=== PATIENT | female | born 1985 | race American Indian/Alaskan Native ===

== ENCOUNTER 2021-12-06 20:35 | Emergency (ER) | payer SELFPAY ==
[2021-12-07 02:41] LABS: Hematocrit 29.7 % (30.3-42.9); Hemoglobin 8.7 gm/dl (10.1-14.3); Mean Corpuscular HGB Conc 29 % (30-34); Mean Corpuscular Volume 71 fl (79-97); Platelet Count 363 K/mm3 (140-440); Red Blood Count 4.19 M/mm3 (3.65-5.03); Red Cell Distribution Width 17.7 % (13.2-15.2)
[2021-12-07 02:47] LABS: Alanine Aminotransferase 9 units/L (7-56); Blood Urea Nitrogen 5 mg/dL (7-17); Calcium 9.1 mg/dL (8.4-10.2); Hemolysis Index 22
[2021-12-07 03:02] LABS: BUN/Creatinine Ratio 10
[2021-12-07 03:56] LABS: Basophils % (Manual) 0 % (0.0-1.8); Total Cells Counted 100
[2021-12-07 03:57] LABS: Hypochromasia 1+; Platelet Estimate Consistent w Auto
--- NOTE | 2021-12-07 04:46 | Cat Scan Report ---
CT facial bones w con INDICATION / CLINICAL INFORMATION: facial swelling. TECHNIQUE: Axial CT imaging of maxillofacial region was obtained with 100 mL Omni 350 IV contrast. Coronal and s agittal reformatted imaging obtained and reviewed. All CT scans at this location are performed using CT dose reduction for ALARA by means of automated exposure control. COMPARISON: None available. FINDINGS: In the soft tissues lateral to the right orbit, there is large area of induration and inflammatory ch wild. Within this area of inflammatory change there is a more focal subtle masslike area that may be the very beginning of abscess development. This area measures approximately 3-3.5 cm. Inflammatory ch wild extends to the lateral aspect of the right orbit. There is mild periorbital soft tissue edema. T he right orbit is otherwise unremarkable. Visualized paranasal sinuses and mastoid air cells are all well aerated and clear. No evidence of sin usitis. No visible dental abscess. No osseous abnormality identified. IMPRESSION: 1. Large area of inflammatory change and induration in the soft tissues lateral to the right orbit. W ithin the area of inflammatory change, there may be the beginning of abscess formation, measuring jayde roximately 3-3.5 cm. 2. Inflammatory change extends to the periorbital soft tissues on the right. The right orbit is other post unremarkable. 3. No evidence of sinusitis. Signer Name: Maddison Osborn MD Signed: 12/07/2021 4:41 AM Workstation Name: [id number]
[2021-12-07] MEDS ORDERED: dexAMETHasone 4 MG/ML VIAL IV ONE (06:26)
[2021-12-07] MEDS ORDERED: MORPHINE 4 MG/1 ML INJ IV ONE ×2 (06:26→08:07)
[2021-12-07] MEDS ORDERED: SODIUM CHLORIDE 0.9% 1000 ML 1,000 ML IV ONE ×2 (06:27→09:27)
--- NOTE | 2021-12-07 06:35 | Emergency Department Report ---
ED General Adult HPI - General Chief complaint: Eye Problems Stated complaint: INSECT BITE/RT SIDE FACIAL SWELLING PUI?: No Time Seen by Provider: 12/07/21 06:14 Source: patient Mode of arrival: Ambulatory Limitations: No Limitations - History of Present Illness Initial comments: Please note that this patient had been triaged and registered for 9 hours and 38 minutes prior to this provider shift time onset and arrival. She had diagnostic imaging and labs ordered and resulted in the electronic health care record which I reviewed at the time of my independent evaluation of her. 36-year-old female presents with complaints of 5 days of progressively worsening right-sided facial pain swelling as well as right periorbital swelling and throat pain. 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 She states she did not see an insect bite her but "I think something did by me." She recalls feeling pain and then developing a small pustule which she attempted to pop with her fingers. Since then she has developed spreading pain and redness and some drainage from the site. She c/o pain with movement in her Right eye as well as light sensitivity in her R eye. She states she is not having any vision changes but feels as though her throat is tight and she has pain with swallowing. No nausea vomiting fevers or chills. No vision changes. She states she has no difficulty with swallowing her oral secretions. Pain currently 8 out of 10. Patient states she did not seek medical attention prior to her return to [place] which was this morning. Last menstrual cycle was November 17, 2021. Severity scale (0 -10): 5 - Related Data Allergies Allergy/AdvReac Type Severity Reaction Status Date / Time No Known Allergies Allergy Unverified 12/06/21 21:20 ED Review of Systems ROS: Stated complaint: INSECT BITE/RT SIDE FACIAL SWELLING Other details as noted in HPI Comment: All other systems reviewed and negative ED Past Medical Hx - Past Medical History Previous Medical History?: No - Surgical History Past Surgical History?: Yes Additional Surgical History: gastric bypass - Social History Smoking Status: Never Smoker Substance Use Type: None ED Physical Exam - General Limitations: No Limitations General appearance: alert, other (Talking on personal cellular telephone with family member, no drooling no stridor no respiratory distress, breathing unlabo red) - Head Head exam: Present: atraumatic, other (Patient has spontaneously draining questionable abscess to right temporal region, moderate erythema and tenderness palpation findings consistent with cellulitis and possible underlying abscess) - Eye Eye exam: Present: normal appearance, PERRL, EOMI, periorbital swelling, periorbital tenderness (Right lateral periorbital swelling and tenderness palpation,) Pupils: Present: normal accommodation - ENT ENT exam: Present: normal exam, normal orophraynx, mucous membranes moist, normal external ear exam - Neck Neck exam: Present: normal inspection, full ROM, lymphadenopathy - Respiratory Respiratory exam: Present: normal lung sounds bilaterally. Absent: respiratory distress, wheezes, rales, rhonchi, stridor, chest wall tenderness, decreased breath sounds, other - Cardiovascular Cardiovascular Exam: Present: regular rate, normal rhythm, normal heart sounds - Neurological Exam Neurological exam: Present: alert, oriented X3, CN II-XII intact, normal gait, motor sensory deficit, reflexes normal. Absent: altered, abnormal gait, other - Psychiatric Psychiatric exam: Present: normal affect. Absent: normal mood, depressed, agitated, anxious, flat affect, manic, homicidal ideation, suicidal ideation ED Course Vital Signs 12/06/21 12/07/21 12/07/21 21:15 07:45 08:00 Temperature 97.9 F Pulse Rate 91 H Respiratory 17 Rate Blood Pressure 133/83 Blood Pressure 139/102 [Left] O2 Sat by Pulse 98 100 100 Oximetry 12/07/21 12/07/21 08:16 08:27 Temperature 98.6 F Pulse Rate 90 Respiratory Rate Blood Pressure 133/83 Blood Pressure [Left] O2 Sat by Pulse 99 Oximetry - Reevaluation(s) Reevaluation #1: 12/07/21 09:08 pt reassessed; states pain has improved; continues to c/o pain with R EOM movement; pt informed that she has been accepted for transfer to [facility] given her inability to be transferred to the [facility] surrounding the area. Patient verbalized agreement. We are awaiting EMS transportation. - Consultations Consultation #1: 12/07/21 08:19 Per community outreach specialist, [facility] is on diversion except for saleh, trauma, and acute strokes. intake coordinator will not permit me to speak with ophthalmology. 08:17am: Return call received from [facility]. I spoke to the clinical research coordinator. She states there are no med/surg beds available but she will have the balance staff inspector return my call. 08:50am: Return call received from [facility]. They are on diversion. 08:51am: per community outreach specialistDorothy: [facility] has confirmed they do not have ophthalmology services available. 08:56am: Per community outreach specialistDorothy: [facility] is on diversion. 08:59am: Return call received from [facility]. I spoke with ER attending physician, Dr. Jacome. She confirms that ophthalmology is a consulting service on staff at that facility. She has verbalized agreement to accept the patient for transfer to the emergency department. Consultation #2: 12/07/21 12/07/21 09:11 ED Medical Decision Making - Lab Data Result diagrams: 12/07/21 02:09 12/07/21 02:09 - Medical Decision Making 36-year-old female presents with 4 to 5 days of progressively worsening right facial pain and swelling as well as photophobia and pain with right extraocular muscle movement. She is found on physical exam and diagnostic imaging to have right periorbital cellulitis, and right facial abscess lateral to her right orbit. This facility does not have ophthalmology, OMFS, or ENT available for consultation. Therefore the patient necessitated emergent transfer for further evaluation by 1 of more of these consulting services. Multiple facilities were telephoned and facilities were either on diversion or do not have ophthalmology consultation available. The patient was subsequently accepted for transfer by Dr. Jacome, ER attending physician at [facility]. She was given morphine 4 mg IV push x2, normal saline 1 L IVSs, and clindamycin 900 mg IV Critical care attestation.: If time is entered above; I have spent that time in minutes in the direct care of this critically ill patient, excluding procedure time. ED Disposition Clinical Impression: Facial cellulitis, Photophobia of right eye, Periorbital cellulitis of right eye, Acute abscess of face Disposition: 02 SHORT TERM HOSPITAL Is pt being admited?: No Does the pt Need Aspirin: No Condition: Stable
--- NOTE | 2021-12-07 07:32 | Ultrasound Report ---
Ultrasound soft tissue, head and neck, 12/07/2021 INDICATION: Focal facial swelling lateral to right orbit. Please evaluate for possible abscess. COMPARISON: CT 12/07/2021 FINDINGS: In the soft tissues lateral to the right orbit, there is focal complex oval mass measuring 3.3 x 1.6 x 2.8 cm. There is vascularity in the surrounding tissue. The appearance is most likely due to abscess. IMPRESSION: 3.3 cm oval soft tissue mass in the soft tissues lateral to the right orbit, most consist ent with abscess. Signer Name: Maddison Osborn MD Signed: 12/07/2021 7:27 AM Workstation Name: [id number]
[2021-12-07 08:27] VITALS: BP 133/83
--- NOTE | 2021-12-07 08:27 | Cat Scan Report ---
CT NECK WITH INTRAVENOUS CONTRAST AND MULTIPLANAR RECONSTRUCTION CLINICAL HISTORY: R sided neck pain/stiffness TECHNIQUE: 2.5 mm thick contiguous axial scans were obtained from the skull base down to the aortic arch during intravenous contrast administration. In addition to evaluation of axial source images sagittal and co ashkan multiplanar reconstructions were produced and reviewed for this report. CONTRAST DOSE REPORT: Omnipaque 350: [address] imaging studies performed at this facility utilize dose modulation, iterative reconstruction o r weight based dosing, if appropriate, to obtain the lowest achievable radiation dose. FINDINGS: SOFT TISSUE FACE: Extensive soft tissue swelling is present lateral to the right orbit along the ante rior margin of the superficial temporal fossa. While the scan is generally thickened in this region t here is a small area of decreased skin thickness overlying a poorly circumscribed low-attenuation fin ding which may represent an abscess or phlegmon. The size of the abscess or phlegmon is about 2.7 cm in superior inferior extent by 3.0 x 1.3 cm in greatest transverse dimension. Surrounding this there are diffusely infiltrative changes in the subcutaneous fat. Soft tissue swelling extends medially tow ards the right globe with apparent thickening of the eyelids and lateral canthus. AIRWAY: No abnormalities are seen along the course of the airway. Nasopharynx, oropharynx, hypopharyn x, larynx and visualized portions of the subglottic airway all have an unremarkable appearance. LYMPH NODES: Multiple normal-sized lymph nodes are identified in level 2A, 2B, level 3 and level 1B. These appear to be reactive inflammatory lymph nodes. ORAL CAVITY/FLOOR OF MOUTH: An occasional dental cavity is identified. There is no indication of sign ificant periodontal disease. No significant abnormalities are seen in evaluation of the oral cavity a nd tongue. The floor the mouth has a normal appearance. MAJOR SALIVARY GLANDS: The parotid and submandibular salivary glands have a normal appearance. NASAL CAVITY AND PARANASAL SINUSES: Evaluation of the nasal cavity reveals no abnormality. The parana karen sinuses are free from inflammatory mucosal disease. ORBITS:No abnormalities of the visualized portions of the orbits are identified. Globes, optic nerves , extraocular muscles and lacrimal glands have an unremarkable appearance. THYROID GLAND: The thyroid gland is normal in size and homogeneous in attenuation. No focal thyroid l esions are identified. TEMPORAL BONES:Mastoid air cells are normally pneumatized. CRANIOCERVICAL JUNCTION:No significant abnormality. CERVICAL SPINE: Evaluation of the cervical spine reveals no significant abnormality. Normal alignment is maintained. No significant degenerative changes are identified. LUNG APICES: Evaluation of the lung apices reveals no abnormality. There is no indication of lung nod ule or infiltrate. The visualized portions of the superior mediastinum have an unremarkable appearanc e. CONTRAST ADMINISTRATION: Enhancement of normal vascular structures is demonstrated. No areas of abnor mal contrast enhancement are identified. IMPRESSION: 1. Findings suggest subcutaneous infection in the region of the right superficial temporal fossa wher e an abscess versus phlegmon is identified. Signer Name: Lexx Stearns MD Signed: 12/07/2021 8:23 AM Workstation Name: [id number]
== END 2021-12-07 10:21 | disposition short-term general hospital (02) ==
LOC: ED 20:35
DX: L03.211 Cellulitis of face (principal); H53.149 Visual discomfort, unspecified; L03.213 Periorbital cellulitis; L02.01 Cutaneous abscess of face
CPT/HCPCS: 36415; 70487; 70491; 76536; 80053; 82140; 84703; 85007; 85025; 87040; 96361; 96365; 96375; 96376; 99285; J1100; J2270; J7030; J7502; Q9967